=== PATIENT | male | born 1980 | race African-American/Black ===

== ENCOUNTER 2021-09-22 23:09 | Emergency (ER) | payer MEDICAID ==
[~2021-09-22] VITALS: Ht 180.3 cm; Wt 86.4 kg
[2021-09-23] MEDS ORDERED: ACETAMINOPHEN 500 MG TABLET PO ONE (01:15)
[2021-09-23] MEDS ORDERED: IBUPROFEN 400 MG TABLET PO ONE (01:15)
[2021-09-23 03:01] VITALS: BP 163/121
[2021-09-23] MEDS ORDERED: ATORVASTATIN CALCIUM 40 MG TABLET PO ONE (05:30)
== END 2021-09-23 03:30 | disposition home or self-care (01) ==
LOC: EMS 23:10
DX: I83.12 Varicose veins of left lower extremity with inflammation (principal); I83.11 Varicose veins of right lower extremity with inflammation; R60.0 Localized edema; M25.571 Pain in right ankle and joints of right foot; L30.9 Dermatitis, unspecified
CPT/HCPCS: 99283